=== PATIENT | female | born 1980 | race Caucasian/White ===

== ENCOUNTER 2019-06-10 04:16 | Inpatient (IN) | payer OTHER ==
[2019-06-10] MEDS ORDERED: Promethazine INJ(RESTRICTED)* 25 MG/ML 1 ML VIAL IM ONE (05:56)
[2019-06-10] MEDS ORDERED: Nalbuphine* 10 MG/ML 1 ML VIAL IM ONE (05:56)
[2019-06-10] MEDS ORDERED: Lactated Ringers 1000 ML Bag* 1,000 ML IV ONE ×2 (05:56→07:37)
[2019-06-10] MEDS ORDERED: Buffered Lidocaine 1% SYRIN* 1 ML/SYRINGE INTRADERM ONE (05:56)
[2019-06-10] MEDS ORDERED: Lactated Ringers 1000 ML Bag* 1,000 ML IV SCH ×2 (06:00→08:00)
[2019-06-10 06:04] LABS: Urine Benzodiazepine Screen None Detected (None Detect); Urine Opiates Screen None Detected (None Detect)
--- NOTE | 2019-06-10 06:06 | HP ---
General Information - Reason for Visit 39 yo, , IUP@41, here in labor - General Information Maternal Age: 39 Grav: 1 Para: 0 SAB: 0 IEA: 0 Estimated Due Date: 06/03/19 Determined By: LMP Gestational Age in Weeks/Days: 41+0 Maternal Blood Type and Rh: A Negative - Results this Serology/RPR Result: Non-Reactive Rubella Result: Non-Immune HBsAg Result: Negative HIV Result: Negative GBS Culture Result: Negative Past Medical History Pertinent Past Medical History: Non-Contributory Past Medical History Comment: Environmental allergies Pertinent Past Surgical History: None Pertinent Family History: Non-Contributory Family History Comment: Father: Meningitis Mother: Diverticulitis Brother: Colitis PGM: Melanoma PGF: Lung cancer MGF: Cancer - Antepartal Records Antepartal Records: Reviewed, Complicated by: - AMA (39), left adnexal fibroid and hydrosalpinx, rubella equivocal, Rh negative Review of Systems Constitutional: Uncomfortable CV Complaint: No Respiratory: Shortness of Breath: No Gastrointestinal: No Nausea/Vomiting Genitourinary: No Dysuria, No Bleeding, No Leaking Fluid Musculoskeletal: Contractions Neurological: No Headache Movement: Normal Exam Allergies/Adverse Reactions: Allergies No Known Allergies Allergy (Verified 11/27/18 12:15) temp 97.1, HR 71, RR 20, BP 117/71, O2 99 - Measurements Height: 5 ft 1 in Weight: 172 lb Weight in lbs: [id number] Body Mass Index (BMI): 32.5 Pre- Weight: 136 lb Weight Gained This : 36 lbs and 0 ozs - Exam Breast: Breast Exam Deferred CVA: No CVA Tenderness Extremities: No Edema Heart: Normal Rhythm/Heart Sounds HEENT: No Significant Findings Lungs: Clear Bilaterally Rectal: Rectal Exam Deferred Reflexes: DTR 2+ - Abdominal Exam Abdomen Exam: Non-Tender - Ultrasound/Biophysical Profile Ultrasound Status: Not Done Targeted Exam Findings Estimated Weight: 8lbs Cervical Exam: 3cm - Per RN on admission, 4cm Effacement: 90% Station: -1 Presenting Part: Vertex Membrane Status: Intact Bleeding/Discharge: None EFM Findings - External Monitor Findings Baseline Heart Rate: 115 External Monitor Findings: Accelerations Present, No Pattern of Variable or Late Decelerations, Variability Moderate, Baseline Stable External Monitor Findings Comment: No evidence of metabolic acidemia Contractions: Regular, Strong, 45-90 Seconds - 2-4 mins Assessment/Plan - Assessment 39yo, , IUP@41+0 here in labor, GBS negative Rh negative Rubella equivocal course: by home insemination, AMA, left adnexal fibroid and hydrosalpinx No evidence of metabolic acidemia Regular contractions at bedside, supportive - Obstetrical Risk Factors Obstetrical Risk Factors: Post-Dates - Plan Plan: Admit - Anticipate Vaginal Delivery Plan Comment: Admit to labor and delivery VE prn Nubain/phenergan now, possible epidural Anticipate progression to - Date/Time of Admission Date of Admission: 06/10/19 Time of Admission: 04:15
--- NOTE | 2019-06-10 07:04 | PN ---
Progress Note - Progress Note Date of Service: 06/10/19 Note: Pt reports incomplete relief with nubain/phenergan Pt would like an epidural RN to start IV, send labs Anesthesia aware
[2019-06-10] MEDS ORDERED: Sodium Citrate/Citric Acid* 15 ML UDC PO PRN (07:37)
[2019-06-10] MEDS ORDERED: Famotidine TAB* 20 MG PO PRN (07:37)
[2019-06-10] MEDS ORDERED: Phenylephrine 40 MCG/ML SYRINGE IV PUSH PRN ×2 (07:37)
[2019-06-10] MEDS ORDERED: EPHEDrine (Pressors)* 50 MG/ML VIAL IV PUSH PRN ×2 (07:37)
[2019-06-10] MEDS ORDERED: Lactated Ringers 1000 ML Bag* 500 ML IV PRN (07:37)
[2019-06-10 07:44] LABS: ABS Basophils 0.1 10^3/ul (0-0.2); ABS Eosinophils 0.1 10^3/ul (0-0.6); ABS Lymphocytes 1.3 10^3/ul (1.0-4.8); ABS Monocytes 0.6 10^3/ul (0-0.8); ABS Neutrophils 11.4 10^3/ul (1.5-7.7); Eosinophil % 0.4 %; Hematocrit 34 % (35-47); Hemoglobin 11.8 g/dL (12.0-16.0); Lymphocyte % 9.4 %; Mean Corpuscular HGB Conc 34 g/dL (31-36); Mean Corpuscular Hemoglobin 30 pg (27-31); Mean Corpuscular Volume 87 fL (80-97); Mean Platelet Volume 8.1 fL (7.4-10.4); Platelet Count 250 10^3/uL (150-450); Red Blood Count 3.94 10^6 /uL (3.70-4.87); Red Cell Distribution Width 15 % (10-15); White Blood Count 13.3 10^3/uL (3.5-10.8)
[2019-06-10] MEDS ORDERED: OBEPIDURAL* 250 ML EPIDURAL SCH (08:00)
--- NOTE | 2019-06-10 09:56 | PN ---
Progress Note - Progress Note Date of Service: 06/10/19 Note: S: Patient comfortable with epidural, trying to get some rest. O: VSS, afebrile UCs have stopped, both RN and CNM palpated for 5 min after external monitor showed nothing FHT 125, +accels, no decels, mod brigido A: IUP @ 41 weeks in early labor Labor pause P: PARQ discussion starting low-dose pitocin to augment labor, patients in agreement. Consider amniotomy later for continued augmentation if needed but will hold off for now.
[2019-06-10] MEDS ORDERED: Oxytocin in LR* 20 UNITS/1,000 ML BAG IVPB SCH (10:00)
--- NOTE | 2019-06-10 14:53 | PN ---
Progress Note - Progress Note Date of Service: 06/10/19 Note: S: Comfortable with epidural. Feeling a little more pressure here and there. Reports increased discharge. O: Pit @ 10 VE 6-7cm/100/vtx -1, bulging bag FHT 145, Cat 1 VSS, afebrile bloody show A: IUP @ 41 weeks in active labor Possible positional issues of fetus, postierior vs asynclitic? P: Encourage rest and regular position changes. Anticipate SVB.
--- NOTE | 2019-06-10 16:50 | PN ---
Progress Note - Progress Note Date of Service: 06/10/19 Note: S: Feeling more periodic pressure but otherwise still comfortable with epidural. Has been changing positions regularly. O: VE 8/100/vtx 0, bulging bag Pit @ 12 UCs q 2-4 min FHT 140,+accels, no decels, mod brigido bloody show A: IUP in active labor No evidence metabolic acidemia P: Continue position changes. PARQ discussion amniotomy, patient undecided and will discuss with partner.
--- NOTE | 2019-06-10 20:42 | PN ---
Progress Note - Progress Note Date of Service: 06/10/19 Note: S: Feeling more pressure continuously. Has used patient controlled button to bolus. O: VE: Complete/complete/+1 FHT 150, + accels, mod brigido, rare variable decels UCs q 1-3 min Pit at 14, will decrease to 8 VSS, last temp 99.9 A: IUP in active labor, nearing pushing No evidence metabolic acidemia P: Discussion of amniotomy, patient in agreement. Moderate amounts of clear fluid. Plan to labor down/await stronger pressure or urge to push then trial pushing.
[2019-06-11] MEDS ORDERED: Glycerin ADULT SUPP PR PRN (01:26)
[2019-06-11] MEDS ORDERED: Measles, Mumps,Rubella VACC* 0.5 ML/VIAL SUBCUT ONE (01:26)
[2019-06-11] MEDS ORDERED: Lactated Ringers 1000 ML Bag* 1,000 ML IV SCH (02:00)
[2019-06-11] MEDS ORDERED: Oxytocin in LR* 20 UNITS/1,000 ML BAG IVPB SCH (02:00)
[2019-06-11] MEDS: Ibuprofen TAB* 600 MG PO PRN ×4 (02:28→22:03)
--- NOTE | 2019-06-11 02:44 | PROCNOTE ---
[facility] OB: Delivery Note - Delivery A Date of : 06/11/19 Time of : 01:07 [place] Sex: Male - "Everette Marin" Score 1 Minute: 7 Score 5 Minutes: 9 Gestational Age in Weeks and Days at Delivery: 41 Weeks and 1 Days Delivery Method: Spontaneous Vaginal Labor: Spontaneous Did Patient attempt ?: N/A, No Previous Amniotic Fluid: Clear Estimated Blood Loss: 250 Anesthesia/Analgesia: CEI for Labor Delivered By: Patrick Ding - Nursery Level of Nursery: Regular/Bedside - Perineum Perineal Injury: 2nd Degree, 3rd Degree Extension Perineal Injury Comment: partial third degree Perineal Repair: Dr Harris - Events Delivery Events of Note: Pitocin During Labor, Post- Bleeding - Meds Given Delivery Events of Note Comment: nuchal cord x1 and compound hand - Additional Delivery Notes Additional Delivery Notes: Patient admitted in early labor and got epidural as desired with good relief. Slow steady progress with many position changes led to urge to push. Pushed initially on hands and knees for <1 hr, stopped to labor down after anterior cervical lip discovered. After approx 1.5 hours rest, patient again experienced urge to push. Length of active labor 17'14", pushed just under two hours after resuming. Baby born OA to JESSIE, nuchal cord too tight to be looped off so delivered through and unwrapped after. Baby with compound posterior hand. Delivered to maternal abdomen with HR >100, respirations with drying and stimulation. Cord doubly clamped and cut by patient's partner. Placenta delivered with gentle cord traction in Jing presentation, noted to have 3VC, intact appearing membranes. Fundus firm with pitocin infusing. Repair of partial 3rd degree by Dr Harris. Mother and baby stable, planning to breastfeed.
[2019-06-11] MEDS: Witch Hazel PAD* JAR TOPICAL PRN (04:03)
[2019-06-11] MEDS: Dibucaine 1% 28.35 GM TUBE PR PRN (04:03)
[2019-06-11] MEDS ORDERED: Lidocaine 1% INJ* 10 MG/ML 30 ML SDV ONE (05:29)
[2019-06-11] MEDS: Docusate CAP* 100 MG PO SCH ×3 (08:59→22:03)
[2019-06-11] MEDS: Acetaminophen TAB* 325 MG PO PRN ×3 (12:12→22:03)
--- NOTE | 2019-06-11 13:48 | PTEDU ---
Patient Name: HUONG GARCIA JYOTISAMARIABRASHER, ROSE selected video: Follow Me Mum: [employer] [facility] [employer] to view on 06/11/2019 at 1:46:37 PM from [id number]
[2019-06-11] MEDS ORDERED: RHO D Immune Globulin (HUMAN)* 300 MCG = 1,500 I.U. INJ IM ONE (14:40)
[2019-06-11] MEDS: RHO D Immune Globulin (HUMAN)* 300 MCG = 1,500 I.U. INJ IM ONE (14:52)
[2019-06-12] MEDS: Ibuprofen TAB* 600 MG PO PRN ×3 (06:57→18:40)
[2019-06-12] MEDS: Witch Hazel PAD* JAR TOPICAL PRN (09:08)
[2019-06-12] MEDS: Docusate CAP* 100 MG PO SCH ×3 (09:08→20:48)
[2019-06-12] MEDS: Dibucaine 1% 28.35 GM TUBE PR PRN (09:08)
[2019-06-12 09:57] LABS: ABS Basophils 0.1 10^3/ul (0-0.2); ABS Eosinophils 0.3 10^3/ul (0-0.6); ABS Lymphocytes 3.2 10^3/ul (1.0-4.8); ABS Monocytes 1.3 10^3/ul (0-0.8); ABS Neutrophils 11.5 10^3/ul (1.5-7.7); Eosinophil % 1.6 %; Hematocrit 26 % (35-47); Hemoglobin 8.8 g/dL (12.0-16.0); Lymphocyte % 19.5 %; Mean Corpuscular HGB Conc 34 g/dL (31-36); Mean Corpuscular Hemoglobin 29 pg (27-31); Mean Corpuscular Volume 87 fL (80-97); Mean Platelet Volume 7.5 fL (7.4-10.4); Platelet Count 211 10^3/uL (150-450); Red Blood Count 2.99 10^6 /uL (3.70-4.87); Red Cell Distribution Width 15 % (10-15); White Blood Count 16.3 10^3/uL (3.5-10.8)
[2019-06-12] MEDS: RHO D Immune Globulin (HUMAN)* 300 MCG = 1,500 I.U. INJ IM ONE (10:27)
[2019-06-12] MEDS: Acetaminophen TAB* 325 MG PO PRN ×4 (10:38→22:44)
[2019-06-12] MEDS: Ferrous Gluconate TAB* 324 MG TAB PO SCH ×2 (10:38→20:48)
[2019-06-12 19:47] VITALS: BP 116/61
[2019-06-13] MEDS: Ibuprofen TAB* 600 MG PO PRN ×2 (01:15→07:38)
[2019-06-13] MEDS: Acetaminophen TAB* 325 MG PO PRN ×2 (05:57→10:16)
[2019-06-13 06:34] LABS: ABS Basophils 0.1 10^3/ul (0-0.2); ABS Eosinophils 0.2 10^3/ul (0-0.6); ABS Lymphocytes 2.9 10^3/ul (1.0-4.8); ABS Monocytes 0.8 10^3/ul (0-0.8); ABS Neutrophils 7.9 10^3/ul (1.5-7.7); Eosinophil % 1.8 %; Hematocrit 28 % (35-47); Hemoglobin 9.2 g/dL (12.0-16.0); Lymphocyte % 24.4 %; Mean Corpuscular HGB Conc 34 g/dL (31-36); Mean Corpuscular Hemoglobin 29 pg (27-31); Mean Corpuscular Volume 88 fL (80-97); Mean Platelet Volume 7.3 fL (7.4-10.4); Platelet Count 246 10^3/uL (150-450); Red Blood Count 3.15 10^6 /uL (3.70-4.87); Red Cell Distribution Width 15 % (10-15); White Blood Count 11.8 10^3/uL (3.5-10.8)
[2019-06-13] MEDS: Ferrous Gluconate TAB* 324 MG TAB PO SCH (07:38)
[2019-06-13] MEDS: Docusate CAP* 100 MG PO SCH (07:38)
== END 2019-06-13 11:50 | disposition home or self-care (01) | DRG 542 ==
LOC: MCHOBOUT 04:16 → MCHOB 04:50
PROVIDERS: ADMIT Advanced Practice Midwife; ATTEND Midwife
PROC: 10E0XZZ Delivery of Products of Conception, External Approach (ICD-10-PCS; principal; 2019-06-11)
PROC: 4A1HXCZ Monitoring of Products of Conception, Cardiac Rate, External Approach (ICD-10-PCS; 2019-06-11)
PROC: 10907ZC Drainage of Amniotic Fluid, Therapeutic from Products of Conception, Via Natural or Artificial Opening (ICD-10-PCS; 2019-06-11)
PROC: 0DQR0ZZ Repair Anal Sphincter, Open Approach (ICD-10-PCS; 2019-06-11)
DX: O48.0 Post-term pregnancy (principal); Z37.0 Single live birth; O72.1 Other immediate postpartum hemorrhage; O70.20 Third degree perineal laceration during delivery, unspecified; O32.6XX0 Maternal care for compound presentation, not applicable or unspecified; O90.81 Anemia of the puerperium; O76 Abnormality in fetal heart rate and rhythm complicating labor and delivery; O69.1XX0 Labor and delivery complicated by cord around neck, with compression, not applicable or unspecified; Z3A.41 41 weeks gestation of pregnancy; Z91.048 Other nonmedicinal substance allergy status; Z67.11 Type A blood, Rh negative
CPT/HCPCS: 36415; 80307; 85025; 85461; 86850; 86900; 86901; 90707; A9270-GY; J2300; J2550; J2790